=== PATIENT | female | born 1990 | race Caucasian/White ===

== ENCOUNTER 2019-08-11 23:17 | Emergency (ER) | payer SELFPAY ==
--- NOTE | ~2019-08-11 | XR_ITS ---
XR foot RT min 3V DATE: 08/11/2019 23:53 INDICATION: Fall. Right foot pain. TECHNIQUE: 4 views COMPARISON: None FINDINGS: There is a linear oblique fracture through the shaft of the proximal phalanx of the first d igit with up to 1.7 mm lateral displacement of the distal fragment. No intra-articular involvement is noted. No fracture or other fracture or any dislocation, periosteal reaction or bone destruction or radiopaq ue foreign body is detected. IMPRESSION: Fracture proximal phalanx of first digit Reviewed, dictated and finalized at location A.
[2019-08-11 23:21] VITALS: BP 116/82; PULSE 70; RESP 20; TEMP 36.9; O2SAT 100
--- NOTE | 2019-08-12 | ED.LOWEXIN ---
HPI - Extremity Injury (Lower) General Chief Complaint: Extremity Injury, Lower Stated Complaint: R 1st Toe Injury Time Seen by Provider: 08/11/19 23:54 History of Present Illness HPI Narrative: Patient presents with right great toe pain. She was going down into the basement to see her and missed the last 2 steps and fell on the concrete floor. She thought it might be broken. She is in the [facility] from [place], for 2 weeks. She does not have a doctor here in town. 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 She has no medical problems and has a Mirena for control. She has not been sick in the last couple weeks. MD complaint: foot injury and fall Onset (ago): minute(s) Injury: Right: toes (Great toe) Place: home Severity: moderate Relieving factors: nothing Exacerbating factors: movement Context: fall Related Data Allergies Allergy/AdvReac Type Severity Reaction Status Date / Time Penicillins Allergy Unknown Verified 08/11/19 23:25 Review of Systems Review of Systems: Narrative: CONSTITUTIONAL: Denies fever, chills, or sweats. EYES: Denies visual changes, redness, or discharge. ENT: Denies rhinorrhea, congestion, sore throat, or otalgia. CARDIOVASCULAR: Denies chest pain, palpitations, or edema. RESPIRATORY: Denies cough or dyspnea. GASTROINTESTINAL: Denies abdominal pain, nausea, vomiting, or diarrhea. GENITOURINARY: Denies dysuria or hematuria. SKIN: Denies rash or itching. MUSCULOSKELETAL: Denies back pain, joint pain, or myalgia. NEUROLOGIC: Denies headache, numbness, or weakness. PSYCHIATRIC: Denies anxiety or depression. Exam Narrative: Exam Narrative: GENERAL: Well-appearing, well-nourished, and in no acute distress. HEAD: Normocephalic, atraumatic. EYES: PERRLA and EOMI. ENT: Nares clear, no rhinorrhea or epistaxis. Mucous membranes moist. NECK: Supple. CHEST: Clear to auscultation. No respiratory distress. HEART: Regular rate and rhythm. No murmur heard. Normal peripheral pulses. ABDOMEN: Soft, nontender, nondistended, normal active bowel sounds. EXTREMITIES: Tenderness in the right great toe. No edema. SKIN: Warm, dry, no rash. NEURO: No focal deficits. Alert and oriented x3. PSYCH: Normal mood and affect. Course Vital Signs Vital signs: Vital Signs Temperature 98.4 F 08/11/19 23:21 Pulse Rate 70 08/11/19 23:21 Respiratory Rate 20 08/11/19 23:21 Blood Pressure 116/82 08/11/19 23:21 Pulse Oximetry 100 08/11/19 23:21 Temperature 98.4 F 08/11/19 23:21 Pulse Rate 80 08/12/19 00:18 Respiratory Rate 18 08/12/19 00:18 Blood Pressure 118/60 08/12/19 00:18 Pulse Oximetry 100 08/12/19 00:18 MDM - Extremity Injury (Lower) Imaging Data Attestation: I personally reviewed and interpreted this imaging study as follows: My impression: Fracture of the great right toe nondisplaced. Discharge Plan Discharge Clinical Impression: Fractured great toe Qualifiers: Encounter type: initial encounter Fracture type: closed Phalanx: proximal Fracture alignment: nondisplaced Laterality: right Qualified Code(s): S92.414A - Nondisplaced fracture of proximal phalanx of right great toe, initial encounter for closed fracture Patient Disposition: Home, Self-Care Condition: Stable Instructions: Toe Fracture (ED) Prescriptions: New hydrocodone-acetaminophen [[place]] 5-325 mg tablet 1 tablet PO Q4H PRN (Reason: pain) Qty: 10 RF: 0 Follow-up/Referrals: PHYSICIAN NOT ON STAFF,NONSTAFF [Non-Staff] - Prashant Cat MD [Physician] - (Call make an appointment if the toes not healing well) Time of Disposition: 00:04
[2019-08-12 00:18] VITALS: BP 118/60; PULSE 80; RESP 18; O2SAT 100
[2019-08-12 00:24] VITALS: BP 118/60; PULSE 80; RESP 18; O2SAT 100
== END 2019-08-12 00:25 | disposition home or self-care (01) ==
PROVIDERS: Emergency Provider Emergency Medicine
DX: S92.411A Displaced fracture of proximal phalanx of right great toe, initial encounter for closed fracture (principal); W10.9XXA Fall (on) (from) unspecified stairs and steps, initial encounter
CPT/HCPCS: 73630; 99284; A9270